=== PATIENT | female | born 1955 ===

== ENCOUNTER 2016-06-12 02:27 | Emergency (ER) | payer OTHER ==
[2016-06-12] MEDS ORDERED: MAALOX/LIDO2%VISC/SIMETHICONE 40 ML BOT ONE (03:15)
[2016-06-12] MEDS ORDERED: ONDANSETRON 4 MG/2ML 2 ML VIAL ONE (03:15)
[2016-06-12 03:19] LABS: SPECIFIC GRAVITY 1.025 (1.001-1.030); URINE BILIRUBIN NEGATIVE (NEGATIVE); URINE BLOOD TRACE (NEGATIVE); URINE GLUCOSE (UA) NEGATIVE (NEGATIVE); URINE LEUKOCYTE ESTERASE NEGATIVE (NEGATIVE); URINE NITRITE NEGATIVE (NEGATIVE); URINE PROTEIN NEGATIVE (NEGATIVE); URINE UROBILINOGEN NORMAL (0-1 mg/dl)
[2016-06-12 03:21] LABS: URINE APPEARANCE CLEAR; URINE COLOR YELLOW
[2016-06-12 03:32] LABS: URINE BACTERIA 0; URINE EPITHELIAL CELLS 0-2 /hpf; URINE WBC 0-2 /hpf
[2016-06-12 03:41] LABS: ABSOLUTE NEUTROPHIL COUNT 8.8 K/mm3 (1.8-7.7); BASO # 0.1 K/mm3 (0.0-0.2); BASO % 0.4 % (0.2-1.0); EOS # 0.1 (0.0-0.5); EOS % 0.7 % (0.9-2.9); HEMATOCRIT 38.4 % (37.0-47.0); HEMOGLOBIN 12.8 gm/l (12.0-16.0); IMM NEUT% 0.2 % (0-1); LYMPH # 1.6 (1.0-4.8); LYMPH % 14.4 % (15-45); MEAN CELL VOLUME 88.1 fl (81.0-99.0); MEAN CORPUSCULAR HEMOGLOBIN 29.4 pg (27.0-31.0); MEAN CORPUSCULAR HGB CONC 33.3 g/dl (33.0-37.0); MEAN PLATELET VOLUME 9.7 fl (7.4-10.4); MONO # 0.6 (0.0-0.8); MONO % 5.2 % (4-12); NEUT % 79.1 % (43-75); PLATELET COUNT 279 K/mm3 (130-400); RED CELL DISTRIBUTION WIDTH 13.1 % (11.5-14.5)
[2016-06-12 03:43] LABS: ALB/GLOB RATIO 2.2 (>1.0); ALBUMIN 4.8 gm/dL (3.5-5.7); CALCIUM 11.4 mg/dL (8.6-10.3)
[2016-06-12] MEDS ORDERED: HYDROMORPHONE HCL 1 MG/ML SYRINGE ONE (03:53)
--- NOTE | 2016-06-12 07:13 | US ---
ABDOMINAL-LIMITED History: Right upper quadrant pain with nausea and vomiting. Findings: Gallbladder: The gallbladder is mildly distended. There are several echogenic shadowing foci seen within the dependent portion of the gallbladder. No wall thickening or pericholecystic fluid is visualized. A negative sonographic Stroud sign was elicited during the course of the exam. Biliary tree: The common hepatic duct measures 3.1 millimeters adjacent to the hepatic artery. Liver: the visualized liver is homogeneous. No masses or evidence of intra-hepatic biliary dilatation are seen. Impression: 1. Cholelithiasis without associated wall thickening or biliary dilatation.
[2016-06-12] MEDS ORDERED: OXYCODONE/ACETAMINOPHEN 5/325 MG TABLET ONE (07:17)
== END 2016-06-12 08:05 | disposition home or self-care (01) ==
LOC: ED 02:27
DX: K80.20 Calculus of gallbladder without cholecystitis without obstruction (principal); R11.0 Nausea
CPT/HCPCS: 83690; 85025; 80053; 81001; 76705; 96375; 99284 ×2; 96374; J1170; A9270 ×2; J2405

== ENCOUNTER 2016-06-12 14:55 | Day surgery (SDC) | payer OTHER ==
[2016-06-12 16:15] LABS: ABSOLUTE NEUTROPHIL COUNT 8.8 K/mm3 (1.8-7.7); BASO % 0.3 % (0.2-1.0); EOS % 0.1 % (0.9-2.9); HEMATOCRIT 41.7 % (37.0-47.0); IMM NEUT% 0.2 % (0-1); LYMPH # 1.1 (1.0-4.8); LYMPH % 10.9 % (15-45); MEAN CELL VOLUME 86.9 fl (81.0-99.0); MEAN CORPUSCULAR HEMOGLOBIN 29.2 pg (27.0-31.0); MEAN CORPUSCULAR HGB CONC 33.6 g/dl (33.0-37.0); MONO # 0.5 (0.0-0.8); MONO % 4.8 % (4-12); NEUT % 83.7 % (43-75); PLATELET COUNT 287 K/mm3 (130-400); RED CELL DISTRIBUTION WIDTH 13.1 % (11.5-14.5)
[2016-06-12] MEDS ORDERED: SODIUM CHLORIDE 0.9% 1,000 ML ONE (16:37)
[2016-06-12] MEDS ORDERED: KETOROLAC TROMETHAMINE 30 MG/ML 1 ML VIAL ONE (16:37)
[2016-06-12] MEDS ORDERED: ONDANSETRON 4 MG/2ML 2 ML VIAL ONE (16:37)
[2016-06-12 16:50] LABS: ALB/GLOB RATIO 1.4 (>1.0); ALBUMIN 4.2 gm/dL (3.5-5.7); CALCIUM 9.6 mg/dL (8.6-10.3)
[2016-06-12] MEDS ORDERED: PIPERACILLIN-TAZO PREMIX BAG 50 ML IV ONE (17:54)
[2016-06-12] MEDS ORDERED: ACETAMINOPHEN 325 MG TABLET PO PRN (18:40)
[2016-06-12] MEDS ORDERED: OXYCODONE HCL 5 MG TABLET PO PRN (18:40)
[2016-06-12] MEDS ORDERED: ONDANSETRON 4 MG/2ML 2 ML VIAL IV PRN (18:40)
[2016-06-12] MEDS ORDERED: MAG HYDROX/AL HYDROX/SIMETH 30 ML UDCUP PO PRN (18:40)
[2016-06-12] MEDS ORDERED: MENTHOL/CETYLPYRD 1 EACH LOZENGE PO PRN (18:40)
[2016-06-12] MEDS ORDERED: BLISTEX LIPSTICK 1 EACH TP PRN (18:40)
[2016-06-12] MEDS ORDERED: HYDROMORPHONE HCL 1 MG/ML SYRINGE IV PRN (18:40)
[2016-06-12] MEDS ORDERED: PUMP TUBING ONE (20:58)
[2016-06-12] MEDS: LACTATED RINGERS 1,000 ML IV SCH (21:13)
[2016-06-12] MEDS: HYDROMORPHONE HCL 0.5 MG/0.5 ML SYRINGE IV PRN (21:31)
[2016-06-13] MEDS: PIPERACILLIN-TAZO PREMIX BAG 3.375 G in Premix (D5W) 50 ml 1 EACH IV SCH ×5 (01:00→20:28)
[2016-06-13] MEDS: HYDROMORPHONE HCL 0.5 MG/0.5 ML SYRINGE IV PRN ×3 (01:44→08:14)
--- NOTE | 2016-06-13 06:18 | HP ---
Patricia Harper [id number] DATE: 06/12/2016 CHIEF COMPLAINT: Abdominal pain. HISTORY OF PRESENT ILLNESS: Patricia Harper is a 60-year-old female is seen after presenting to the emergency room with a one day history of right upper quadrant abdominal pain. Apparently, she was seen earlier in the day and found to have gallstones. There was no signs of acute cholecystitis. She was deemed stable for discharge on oral medications. She returned because of consistent pain. She reports she has had nausea with vomiting. She is not sure if she has had some fevers. She has had no diarrhea. She has had intermittent symptoms like this over the past year with episodes usually lasting about an hour. This episode has persisted. Her ultrasound done this morning demonstrated cholelithiasis without gallbladder wall thickening or pericholecystic fluid. The common bile duct was not dilated. PAST MEDICAL HISTORY: None. PAST SURGICAL HISTORY: Dilation and curettage. CURRENT MEDICATIONS: None. ALLERGIES: To medications none known. FAMILY HISTORY: No one else in the family has had gallbladder problems. Mom had breast cancer. SOCIAL HISTORY: She does not smoke. She denies alcohol or drug use. REVIEW OF SYSTEMS: Constitutional: Possible fevers. Eyes: No complaints. Ears, nose, throat: No complaints. Cardiac: No complaints. Pulmonary: No complaints. GI: As above. : No complaints. Gynecologic: No complaints. Musculoskeletal: No complaints. Neurologic: No complaints. Endocrine: No complaints. Hematologic: No complaints. PHYSICAL EXAMINATION: VITAL SIGNS: In the emergency room temp was 97.1, pulse is 72, blood pressure 137/73, respirations 18, O2 sat is 98% on room air. GENERAL: She is awake, alert, appears uncomfortable in no acute distress. HEENT: Head atraumatic, normocephalic. Eyes: Pupils equal. Sclerae are nonicteric. Oropharynx: No exudate or erythema seen. NECK: Supple without lymphadenopathy or thyromegaly. LUNGS: Clear to auscultation. Normal respiratory effort. HEART: Regular rate and rhythm. No murmurs are heard. ABDOMEN: Soft, nondistended. She is tender diffusely, but focus is mainly in the right upper quadrant. She has a Stroud's sign. No masses palpable. No organomegaly appreciated. EXTREMITIES: Without cyanosis, clubbing, or edema. NEUROLOGIC: She appears alert and oriented. Sensation grossly intact to all extremities. PSYCHIATRIC: Appears painful, but otherwise shows no signs of anxiety or depression. Appears able to make informed medical decisions. LABORATORIES: Sodium 138, potassium 4.0, chloride 104, carbon dioxide 28, BUN 17, creatinine 0.7, glucose 130, total bilirubin 1.1, AST is 130, ALT 137, alk phos 91, albumin 4.2. White blood cell count 10.5, hemoglobin 14.0, platelets are 287. ASSESSMENT: Acute cholecystitis with cholelithiasis. PLAN: She has been admitted to the hospital. We started her on intravenous antibiotics with Zosyn. We will give her pain medicine as needed. We will plan to take her gallbladder out tomorrow. We discussed procedure for laparoscopic and possible open cholecystectomy. We discussed risks of bleeding, infection, injury to liver, common bile duct, and the possible need to convert to an open procedure. She and her expressed understanding and are willing to proceed. JOB: [id number] CC: Dr. Sharon Strong
[2016-06-13 07:02] LABS: HEMATOCRIT 34.5 % (37.0-47.0); HEMOGLOBIN 11.4 gm/l (12.0-16.0); MEAN CORPUSCULAR HEMOGLOBIN 29.1 pg (27.0-31.0); RED CELL DISTRIBUTION WIDTH 13.4 % (11.5-14.5)
[2016-06-13 07:36] LABS: ALB/GLOB RATIO 1.2 (>1.0); ALBUMIN 3.1 gm/dL (3.5-5.7); CALCIUM 8.4 mg/dL (8.6-10.3)
[2016-06-13] MEDS: LACTATED RINGERS 1,000 ML IV SCH (09:43)
[2016-06-13] MEDS ORDERED: IV START KIT ONE (10:44)
[2016-06-13 11:00] VITALS: BMI 26.4
[2016-06-13] MEDS ORDERED: IOPAMIDOL 300 (61%) 30 ML SDV ONE ×2 (11:08→12:31)
[2016-06-13] MEDS ORDERED: SODIUM CHLORIDE 0.9% 50 ML ONE (11:08)
[2016-06-13] MEDS ORDERED: BUPIVACAINE 0.5% W/EPI SDV 30 ML VIAL ONE (11:08)
[2016-06-13] MEDS ORDERED: PROPOFOL 20 ML IV ONE (11:20)
[2016-06-13] MEDS ORDERED: ROCURONIUM BROMIDE 10 MG/ML DOSE IV ONE (11:20)
[2016-06-13] MEDS ORDERED: MIDAZOLAM HCL 1 MG/ML 2ML VIAL ONE (11:20)
[2016-06-13] MEDS ORDERED: FENTANYL 100 MCG/2 ML VIAL ONE ×2 (11:20→12:06)
[2016-06-13] MEDS ORDERED: EPHEDRINE SULFATE UD SYR 25 MG 25 MG/5 ML SYRINGE IV ONE (12:01)
[2016-06-13] MEDS ORDERED: MEPERIDINE 25 MG/ML SYRINGE IV PRN (12:05)
[2016-06-13] MEDS ORDERED: LABETALOL HCL 5 MG/ML 20ML VIAL IV PRN (12:05)
[2016-06-13] MEDS ORDERED: PROMETHAZINE HCL 25 MG/ML VIAL IM PRN (12:05)
[2016-06-13] MEDS ORDERED: ONDANSETRON 4 MG/2ML 2 ML VIAL IV PRN ×2 (12:05→13:55)
[2016-06-13] MEDS ORDERED: HYDROMORPHONE HCL 1 MG/ML SYRINGE IV PRN (12:05)
[2016-06-13] MEDS ORDERED: HYDRALAZINE HCL 20 MG/1 ML VIAL IV PRN (12:05)
[2016-06-13] MEDS ORDERED: FENTANYL 100 MCG/2 ML VIAL IV PRN (12:05)
[2016-06-13] MEDS ORDERED: NALOXONE HCL 0.4 MG/ML VIAL IV PRN (12:05)
[2016-06-13] MEDS ORDERED: ATROPINE SULFATE 0.4 MG/1 ML VIAL IV PRN (12:05)
[2016-06-13] MEDS ORDERED: ONDANSETRON 4 MG/2ML 2 ML VIAL ONE (12:06)
[2016-06-13] MEDS ORDERED: DEXAMETHASONE SOD PHOS 4 MG/1 ML VIAL ONE (12:06)
[2016-06-13] MEDS ORDERED: LACTATED RINGERS 1,000 ML IV SCH (12:15)
--- NOTE | 2016-06-13 13:10 | RAD ---
CHOLANGIOGRAM-OPERATIVE HISTORY: Laparoscopic cholecystectomy. COMPARISONS: None. FINDINGS: 2 fluoroscopic images were submitted for review during injection of the cystic duct stump following cholecystectomy. There is fill of the extrahepatic biliary tree with no retained filling defect suggested. Though contrast is noted into the duodenal C-sweep. A total of 51 seconds of fluoroscopy was utilized for the examination. IMPRESSION: 1. Intraoperative fluoroscopy following cholecystectomy with no retained filling defects identified within the extrahepatic biliary tree with flow of contrast noted into the duodenal C-sweep.
[2016-06-13] MEDS ORDERED: OXYCODONE HCL 5 MG TABLET PO PRN (13:55)
[2016-06-13] MEDS ORDERED: KETOROLAC TROMETHAMINE 30 MG/ML 1 ML VIAL IV PRN (13:55)
[2016-06-13] MEDS ORDERED: MORPHINE SULFATE 2 MG/ML SYRINGE IV PRN (13:55)
[2016-06-13] MEDS ORDERED: MORPHINE SULFATE 4 MG/ML SYRINGE IV PRN (14:11)
[2016-06-13] MEDS ORDERED: MORPHINE SULFATE 10 MG/ML SYRINGE IV PRN (14:12)
[2016-06-14] MEDS: PIPERACILLIN-TAZO PREMIX BAG 3.375 G in Premix (D5W) 50 ml 1 EACH IV SCH ×2 (02:42→07:54)
[2016-06-14] MEDS: LACTATED RINGERS 1,000 ML IV SCH ×2 (04:34→04:35)
[2016-06-14 06:24] LABS: HEMATOCRIT 32.7 % (37.0-47.0); HEMOGLOBIN 10.8 gm/l (12.0-16.0); MEAN CELL VOLUME 88.9 fl (81.0-99.0); MEAN CORPUSCULAR HEMOGLOBIN 29.3 pg (27.0-31.0); RED CELL DISTRIBUTION WIDTH 13.2 % (11.5-14.5)
[2016-06-14 06:44] LABS: ALB/GLOB RATIO 1.2 (>1.0); CALCIUM 8.9 mg/dL (8.6-10.3)
[2016-06-14 07:29] VITALS: BP 112/72
--- NOTE | 2016-06-14 08:48 | PDOC43 ---
- Subjective Subjective: Reports Pain Tolerable, Denies Nausea - Objective Vital Signs Temperature 98.3 F 06/14/16 07:28 Pulse Rate 84 06/14/16 07:28 Respiratory Rate 18 06/14/16 07:28 Blood Pressure 112/72 06/14/16 07:28 O2 Saturation by Pulse Oximetry 95 06/14/16 07:28 Oxygen Delivery Method Room Air Oxygen Flow Rate 0 Laboratory 06/14/16 05:30 06/14/16 05:30 06/14/16 05:30 RBC 3.68 L Total Bilirubin 1.1 H AST 64 H ALT 89 H Total Protein 5.5 L Albumin 3.0 L Active Medication Orders Category Date Time Status Ketorolac Tromethamine [Toradol] Med 06/13/16 13:55 Active 30 mg IV Q6H PRN Lactated Ringers 1,000 ml Med 06/13/16 13:55 Active IV 75 mls/hr Morphine Sulfate Med 06/13/16 13:55 Active 1 - 6 mg IV Q1H PRN Morphine Sulfate Med 06/13/16 14:11 Active 1 - 6 mg IV Q1H PRN Morphine Sulfate Med 06/13/16 14:12 Active 1 - 6 mg IV Q1H PRN Ondansetron 4 mg/2ml Vial [Zofran] Med 06/13/16 13:55 Active 4 mg IV Q6H PRN Oxycodone HCl [Roxicodone] Med 06/13/16 13:55 Active 5 - 10 mg PO Q4H PRN Piperacillin-Tazo Premix Bag [Zosyn 3.375 G] 3.375 g Med 06/13/16 14:30 Active Premix (D5W) 50 ml 1 each IV Q6H Sodium Chloride 0.9% Flush [Normal Saline 10ml Flush] Med 06/13/16 14:12 Active 10 ml IV PRN PRN Sodium Chloride 0.9% Flush [Normal Saline 10ml Flush] Med 06/13/16 17:00 Active 10 ml IV Q8HR Intake and Output 06/13/16 06/14/16 06/15/16 06:59 06:59 06:59 Intake Total 1006 3650 Output Total 400 3270 Balance 606 380 General: Alert, Oriented x3 Abdomen: Soft, Non-Distended Wound: Dressing Clean/Dry/Intact - Assessment/ Plan (1) Calculus of gallbladder with acute cholecystitis without obstruction Status: Acute Assessment/ Plan: Doing well. OK to discharge on oral antibiotics.
--- NOTE | 2016-06-18 13:21 | OP ---
MATT SPARKS [id number] DATE OF OPERATION: June 12, 2016 PREOP DIAGNOSIS: Acute cholecystitis with cholelithiasis POSTOP DIAGNOSIS: Acute cholecystitis with cholelithiasis PROCEDURE: LAPAROSCOPIC CHOLECYSTECTOMY WITH INTROP CHOLANGIOGRAM. SURGEON: Sylvester Blanco M.D. BATTING MACHINE OPERATOR INSULATION: Ila Vee CFA ANESTHESIA: General endotracheal anesthetic. INDICATIONS: This is a 60-year-old female who presented to the emergency room with a one-day history of right upper quadrant abdominal pain. She initially was discharged but returned with persistent right upper quadrant pain. Ultrasound did show cholelithiasis without gallbladder wall thickening or pericholecystic fluid. The common bile duct was not dilated. Because of her persistent symptoms, she was taken to the operating room for cholecystectomy. DESCRIPTION: With informed consent she was taken to the operating room. She was laid supine on the operating room table. General endotracheal anesthetic was administered. The abdomen was prepped and draped in the usual fashion. Local anesthetic was administered below the umbilicus. An incision was made. Fascia was grasped with Soheila clamps and divided with curved Franks scissors. Sutures of Surgilon were placed in the fascial edges and a Collin port was placed. A pneumoperitoneum was created. Local anesthetic was administered in the midepigastrium and along the right lateral abdominal wall. Incisions were made. The 5 mm ports were placed. The gallbladder was distended. I aspirated some bile from it. There were adhesions to the gallbladder. These were taken down with blunt dissection. The fundus was retracted cephalad, and the infundibulum was retracted laterally. The cystic duct was identified and dissected free. A clip was placed. The duct was partially transected. A cholangiogram was obtained showing flow of contrast into the duodenum without filling defect. Initial cholangiogram pictures showed a filling defect but this was moved like an air bubble. Eventually with flushing, it was resolved. No persistent filling defect was seen. The catheter was removed. Two clips were placed on the cystic duct stump and it was completely transected. There appeared to be anterior and posterior branches of the cystic artery, and these were clipped and transected leaving two clips on the stump. The gallbladder was taken off the liver bed using electrocautery. Once , it was placed within an EndoCatch bag and removed through the infraumbilical port site. We did have some oozing from the liver bed. This was cauterized. Eventually I did use some Surgicel in place. We appeared to have good hemostasis at the conclusion. The ports were removed and the pneumoperitoneum evacuated. The infraumbilical fascia defect was closed with [id number] sutures of #0 Surgilon. The other fascial defects were small. Skin was closed with subcuticular #4-0 Monocryl. Mastisol and Steri-Strips were placed. Sterile dressings were applied. She tolerated the procedure and was taken to the recovery room in stable condition. A note was made that needle, instrument and lap counts were reported as correct at the time of closure.
== END 2016-06-14 13:10 | disposition home or self-care (01) ==
LOC: ED 14:55 → MS 17:58 → SDC 17:58
PROVIDERS: ATTEND Surgery
PROC: 0FT44ZZ Resection of Gallbladder, Percutaneous Endoscopic Approach (ICD-10-PCS; principal; 2016-06-12)
PROC: BF141ZZ Fluoroscopy of Gallbladder, Bile Ducts and Pancreatic Ducts using Low Osmolar Contrast (ICD-10-PCS; 2016-06-12)
DX: K80.00 Calculus of gallbladder with acute cholecystitis without obstruction (principal); R11.0 Nausea
CPT/HCPCS: 47563; 83690; 85027 ×2; 85025 ×2; 80053 ×4; 81001; 36415 ×2; 74300; 76705; 94010; 96375 ×3; 99284 ×3; 96374; 96361; 96365; 99285; A9270 ×4; J1170 ×5; J3010 ×2; J1100; J1885; J2250; J2405 ×4; J2543 ×2; J7120 ×3; J7030 ×2; Q9967